=== PATIENT | male | born 1990 | race Caucasian/White ===

== ENCOUNTER 2020-04-12 21:13 | Emergency (ER) | payer MEDICAID ==
[~2020-04-12] VITALS: Ht 190.5 cm; Wt 124.5 kg
[2020-04-12] MEDS ORDERED: cloNIDine 0.1 mg tablet PO ONE (21:55)
[2020-04-12] MEDS ORDERED: LORA-269 PO (22:05)
[2020-04-12] MEDS ORDERED: GABA300C PO (22:05)
--- NOTE | 2020-04-12 22:18 | NUR ---
Kit SEGOVIA aware BP is 171/111, pt has been instructed to go home and take BP med, ok to dc home
[2020-04-12 22:19] VITALS: BP 171/111
== END 2020-04-12 22:21 | disposition home or self-care (01) ==
LOC: ER 21:13
DX: F10.10 Alcohol abuse, uncomplicated (principal); F31.9 Bipolar disorder, unspecified; I10 Essential (primary) hypertension; G89.29 Other chronic pain; Z88.1 Allergy status to other antibiotic agents; Z79.899 Other long term (current) drug therapy
CPT/HCPCS: 99283

== ENCOUNTER 2020-12-23 00:01 | Emergency (ER) | payer MEDICAID ==
[~2020-12-23] VITALS: Ht 190.5 cm; Wt 100.0 kg
[~2020-12-23 00:01] MED LIST: GABA300C PO; LORA-269 PO
[2020-12-23 00:39] LABS: BASOPHILS % (AUTO) 0.1 % (0-1); EOSINOPHILS % (AUTO) 0 % (0-6); HEMATOCRIT 52.6 % (42.0-52.0); HEMOGLOBIN 17.9 g/dl (14.0-17.9); LYMPHOCYTES # (AUTO) 1.3 X10'3 (1.1-4.8); MEAN CORPUSCULAR HEMOGLOBIN 28.4 PG (27.0-31.0); MEAN CORPUSCULAR HGB CONC 34.1 g/dL (33.0-36.5); MEAN CORPUSCULAR VOLUME 83.3 FL (78-98); MEAN PLATELET VOLUME 8.6 FL (7.4-10.4); MONOCYTES # (AUTO) 1.6 X10'3 (0-0.9); MONOCYTES % (AUTO) 9.4 % (2-12); NEUTROPHILS # (AUTO) 13.8 X10'3 (1.8-7.7); NEUTROPHILS % (AUTO) 82.5 % (42-75); PLATELET COUNT 223 X10'3 (140-440); RED BLOOD COUNT 6.32 X10'6 (4.70-6.10); RED CELL DISTRIBUTION WIDTH 14.7 % (11.5-14.5); WHITE BLOOD COUNT 16.7 X10'3 (4.5-11.0)
[2020-12-23 00:46] LABS: ALANINE AMINOTRANSFERASE 149 U/L (12-78); ALBUMIN 4.8 G/DL (3.4-5.0); ALBUMIN/GLOBULIN RATIO 1.2 (1.1-1.5); ALKALINE PHOSPHATASE 158 IU/L (46-116); ANION GAP 18 (8-16); ASPARTATE AMINO TRANSFERASE 154 U/L (10-37); BILIRUBIN,TOTAL 1.3 MG/DL (0.1-1.0); BLOOD UREA NITROGEN 27 MG/DL (7-18); BUN/CREATININE RATIO 13.7 (5.4-32.0); CALCIUM 9.9 MG/DL (8.5-10.1); CHLORIDE 94 MMOL/L (99-107); CREATININE 1.97 MG/DL (0.60-1.10); GLUCOSE 117 MG/DL (70-104); POTASSIUM 3.8 MMOL/L (3.5-5.1); SODIUM 135 MMOL/L (135-145); TOTAL CARBON DIOXIDE 22.7 MMOL/L (24-32); TOTAL PROTEIN 8.7 G/DL (6.4-8.2); eGFR 40 ML/MIN
[2020-12-23 01:39] LABS: ACETAMINOPHEN < 2.0 UG/ML (10-30)
[2020-12-23 01:44] LABS: CLARITY,URINE SLIGHTLY CLOUDY (Clear); COLOR,URINE YELLOW (Yellow); GLUCOSE, URINE NEGATIVE (Neg); KETONES,URINE 15 mg/dl (Neg); LEUKOCYTE ESTERASE ,URINE NEGATIVE (Neg); OCCULT BLOOD,URINE TRACE-INTACT (Neg); PH,URINE 5.5 (4.8-8.0); PROTEIN,URINE 100 mg/dl (Neg)
[2020-12-23 01:47] LABS: URINE AMPHETAMINE SCREEN NEGATIVE (Neg); URINE BARBITUATE SCREEN NEGATIVE (Neg); URINE BENZODIAZEPINES SCREEN NEGATIVE (Neg); URINE CANNABINOID SCREEN NEGATIVE (Neg); URINE COCAINE SCREEN NEGATIVE (Neg); URINE METHADONE SCREEN NEGATIVE (Neg); URINE OPIATE SCREEN NEGATIVE (Neg); URINE PHENCYCLIDINE SCREEN NEGATIVE (Neg)
[2020-12-23 01:48] LABS: UA COLLECTION TYPE CLN CATCH MIDSTREAM
[2020-12-23 01:49] LABS: NITRITES, URINE NEGATIVE (Neg)
[2020-12-23 01:50] LABS: BACTERIA,URINE FEW /HPF (Neg); MUCUS STRANDS FEW /LPF (Neg); RBC,URINE 0-2 /HPF (0-2); SPERM MANY /HPF (NEGATIVE); SQUAMOUS EPITHELIAL CELL,UR FEW /LPF (FEW)
[2020-12-23] MEDS ORDERED: normal saline 1000ml 1,000 ML IV ONE ×2 (03:55)
[2020-12-23] MEDS ORDERED: dextrose 5%-normal saline 1,000 ML IV SCH (03:55)
--- NOTE | 2020-12-23 04:57 | NUR ---
PACKET FAXED TO [facility] BY SOLEDAD WALKER
[2020-12-23 05:05] LABS: D-DIMER 0.48 MG/L FEU (0-0.50)
[2020-12-23 05:30] VITALS: BP 151/90
[2020-12-23 06:25] LABS: ALBUMIN 2.7 G/DL (3.4-5.0); ANION GAP 12 (8-16); BLOOD UREA NITROGEN 25 MG/DL (7-18); BUN/CREATININE RATIO 23.6 (5.4-32.0); CALCIUM 6.4 MG/DL (8.5-10.1); CHLORIDE 108 MMOL/L (99-107); CREATININE 1.06 MG/DL (0.60-1.10); GLUCOSE 99 MG/DL (70-104); SODIUM 141 MMOL/L (135-145); TOTAL CARBON DIOXIDE 21.3 MMOL/L (24-32); eGFR 81 ML/MIN
[2020-12-23 06:31] LABS: POTASSIUM 2.4 MMOL/L (3.5-5.1)
--- NOTE | 2020-12-23 06:40 | NUR ---
Pt to have K+ redrawn per VO Dr. Somers.
[2020-12-23 07:04] LABS: POTASSIUM 3.3 MMOL/L (3.5-5.1)
[2020-12-23] MEDS ORDERED: potassium Cl 20 mEq SR tablet PO ONE (07:10)
[2020-12-23 07:47] LABS: ETHANOL < 0.010 GM/DL (0.0-0.010)
--- NOTE | 2020-12-23 14:15 | NUR ---
Patient ambulatory, steady gait, from ED Main to ED Overflow bed 23.
[2020-12-23] MEDS ORDERED: OLANZapine 5mg rapidly disint. tablet PO ONE (15:15)
[2020-12-23] MEDS ORDERED: acetaminophen 325mg tablet PO ONE (15:15)
--- NOTE | 2020-12-23 15:15 | NUR ---
Patient advised that he is not being held on a 5150 hold and will be discharged by [facility]. Patient told [facility] in front of RN that he can't walk and now he has CP. RN advised James. RN ordered EKG and James will speak to patient as Dr Somers just left. Patient was ambulatory to OF from Josef Elias RN to give Tylenol for feet pain and Zyprexa for psychosis. Continue to monitor.
--- NOTE | 2020-12-23 16:14 | NUR ---
Patient pending Taxi to pick him up. No distress observed. Continue to monitor.
== END 2020-12-23 16:33 | disposition home or self-care (01) ==
LOC: ER 00:01
DX: F29 Unspecified psychosis not due to a substance or known physiological condition (principal); Z20.822 Contact with and (suspected) exposure to COVID-19; R04.2 Hemoptysis; R00.0 Tachycardia, unspecified; N17.9 Acute kidney failure, unspecified; I10 Essential (primary) hypertension; G89.29 Other chronic pain; Z88.0 Allergy status to penicillin; Z79.899 Other long term (current) drug therapy
CPT/HCPCS: 36415; 80048; 80053; 80305; 80320; 80329; 81001; 84132; 84443; 85025; 85379; 87088; 87426; 93005; 96360; 99284; J7030; J7042

== ENCOUNTER 2022-04-09 15:44 | Emergency (ER) | payer MEDICAID ==
[~2022-04-09] VITALS: Ht 190.5 cm; Wt 109.1 kg
[2022-04-09 16:09] VITALS: BP 139/91
== END 2022-04-09 16:42 ==
LOC: ER 15:45
DX: G89.29 Other chronic pain (principal); M25.511 Pain in right shoulder; I10 Essential (primary) hypertension; F31.9 Bipolar disorder, unspecified; Z88.1 Allergy status to other antibiotic agents; Z79.899 Other long term (current) drug therapy; W19.XXXA Unspecified fall, initial encounter; Y93.89 Activity, other specified; Y92.89 Other specified places as the place of occurrence of the external cause; Y99.8 Other external cause status
CPT/HCPCS: 99283